=== PATIENT | female | born 1980 | race African-American/Black ===

== ENCOUNTER 2019-05-27 10:35 | Emergency (ER) | payer MEDICAID ==
[~2019-05-27] VITALS: Ht 157.5 cm; Wt 86.4 kg
[2019-05-27] MEDS ORDERED: LEVO100 PO (10:57)
[2019-05-27] MEDS ORDERED: KETOROLAC TROMETHAMINE 60 MG/2 ML VIAL IM ONE (12:45)
[2019-05-27] MEDS ORDERED: LIDOCAINE 5% TRANSDERMAL PATCH TD ONE (12:45)
[2019-05-27] MEDS ORDERED: ACETAMINOPHEN 325 MG TABLET PO ONE (12:45)
[2019-05-27 14:30] VITALS: BP 122/76
== END 2019-05-27 15:05 | disposition left against medical advice (07) ==
LOC: EMS 10:38
DX: M79.672 Pain in left foot (principal); M25.572 Pain in left ankle and joints of left foot; M54.5 Low back pain; E03.9 Hypothyroidism, unspecified; Z79.899 Other long term (current) drug therapy; W22.8XXA Striking against or struck by other objects, initial encounter; Y93.89 Activity, other specified; Y92.89 Other specified places as the place of occurrence of the external cause; Y99.8 Other external cause status
CPT/HCPCS: 81025; 96372; 99283; J1885

== ENCOUNTER 2019-09-18 23:23 | Emergency (ER) | payer MEDICAID ==
[~2019-09-18] VITALS: Ht 154.9 cm; Wt 77.3 kg
[~2019-09-18 23:23] MED LIST: LEVO100 PO
[2019-09-18 23:53] VITALS: BP 137/78
[2019-09-18] MEDS ORDERED: CITA10TA68 PO (23:53)
[2019-09-19] MEDS ORDERED: ACETAMINOPHEN 500 MG TABLET PO ONE (00:15)
[2019-09-19] MEDS ORDERED: KETOROLAC TROMETHAMINE 60 MG/2 ML VIAL IM ONE (00:15)
== END 2019-09-19 01:11 | disposition home or self-care (01) ==
LOC: EMS 23:23
DX: S30.0XXA Contusion of lower back and pelvis, initial encounter (principal); E03.9 Hypothyroidism, unspecified; W19.XXXA Unspecified fall, initial encounter; Y93.89 Activity, other specified; Y92.89 Other specified places as the place of occurrence of the external cause; Y99.8 Other external cause status
CPT/HCPCS: 96372; 99283; J1885

== ENCOUNTER 2022-11-03 22:51 | Emergency (ER) | payer MEDICAID, OTHER ==
[~2022-11-03] VITALS: Ht 154.9 cm; Wt 100.0 kg
[~2022-11-03 22:51] MED LIST changes: +CITA10TA99 PO
[2022-11-03 23:06] VITALS: BP 147/91
== END 2022-11-04 00:36 | disposition left against medical advice (07) ==
LOC: EMS 22:52
DX: Z53.21 Procedure and treatment not carried out due to patient leaving prior to being seen by health care provider (principal)
CPT/HCPCS: 99281; Z7502